=== PATIENT | male | born 1975 | race Caucasian/White ===

== ENCOUNTER → 2018-09-01 14:24 | Outpatient (CLI) | payer BC ==
[2013-09-01 10:55] VITALS: BMI 32.8
[~2018-09-01 14:24] MED LIST: ACETAMINOPHEN500 M1 PO; BAYER CHEWABLE81 MG PO; BUSPAR10 MG PO; LOTRIMIN10 ML TP; MEVACOR20 MG PO; MOTRIN600 MG PO; PEPCID40 MG PO; PERCOCET 10/3251 TA1 PO; SYSTANE 0.3-0.4%5 ML EACH EYE; SYSTANE NIGHTT3.5 GM EACH EYE; TENORMIN50 MG PO; VALTREX500 MG PO; VITAMIN D3400 UNI1 PO
--- NOTE | 2018-09-08 14:51 | ST ---
PATIENT:ZINA DEL VALLE MEDICAL RECORD: [id number] SEX: M LOCATION:[facility] ORDER #: ADMISSION DATE: 09/01/18 AGE OF PATIENT: 43 REFERRING PHYSICIAN: INTERPRETING PHYSICIAN: AME GOMEZ MD DATE OF SERVICE: 09/01/2018 Baseline ECG is normal. Exercised for 8 minutes 20 seconds under Ubaldo protocol. Maximum heart rate 136 beats per minute, 83% of max predicted. No ECG change for ischemia. No symptoms of ischemia. Normal blood pressure response to exercise. No arrhythmias were noted. Good exercise tolerance for age. TRANSINT:[id number] Voice Confirmation ID: [id number] DOCUMENT ID: [id number] AME GOMEZ MD at 1451 CC: [id number] DICTATION DATE: 09/07/18 1414 SENIOR HUMAN RESOURCES REPRESENTATIVE: 09/07/18 2218 DEP CLI 09/01/[address] [address]
== END | disposition home or self-care (01) ==
LOC: D.HCCARDIO 08-11 15:00
DX: R06.09 Other forms of dyspnea (principal)

== ENCOUNTER → 2018-12-04 11:55 | Outpatient (CLI) | payer BC ==
[2013-09-01 10:55] VITALS: BMI 32.8
== END | disposition home or self-care (01) ==
LOC: D.RAD 11:55
PROVIDERS: ATTEND Emergency Medicine
DX: M54.6 Pain in thoracic spine (principal)

== ENCOUNTER 2020-03-04 19:49 | Inpatient (IN) | payer MEDICAID ==
[~2020-03-04] VITALS: Ht 175.3 cm; Wt 106.1 kg
[2020-03-04] MEDS ORDERED: PAXIL40 MG PO (20:03)
[2020-03-04] MEDS ORDERED: ATIVAN1 MG PO (20:03)
[2020-03-04] MEDS ORDERED: TENORMIN50 MG PO (20:04)
[2020-03-04] MEDS ORDERED: LIPITOR80 MG (20:04)
[2020-03-04] MEDS ORDERED: SINGULAIR10 MG PO (20:05)
[2020-03-04] MEDS ORDERED: NASONEX NASAL S17 GM IH (20:06)
[2020-03-04 20:18] LABS: BASOPHILS 0.1 % (0-2); EOSINOPHILS 0.1 % (0-7); HEMOGLOBIN 12.7 g/dL (13.5-17.5); IMMATURE GRANULOCYTES 0.4 % (0-5); LYMPHOCYTES 13.4 % (15-50); MCH 29.6 pg (26.0-34.0); MCHC 33.4 g/dL (31.0-37.0); MCV 88.6 fL (80.0-100.0); MEAN PLATELET VOLUME 9.1 fL (7.4-10.4); MONOCYTES 5.7 % (2-11); NEUTROPHILS 80.3 % (40-80); RBC 4.29 10x6/uL (4.20-6.10); RDW 12.5 % (11.5-14.5); WBC 10.6 10x3/uL (4.8-10.8)
[2020-03-04 20:19] LABS: PLATELET COUNT 369 10x3/uL (130-400)
[2020-03-04 20:27] LABS: CALC OSMOLALITY 268 mosm/kg (275-300); CALCIUM 9.8 mg/dL (8.5-10.1); CARBON DIOXIDE 27.4 mmol/L (21.0-32.0); CHLORIDE - SERUM 96 mmol/L (98-107); CREATININE - SERUM 0.8 mg/dL (0.6-1.3); GLUCOSE 136 mg/dL (74-106); POTASSIUM - SERUM 3.4 mmol/L (3.5-5.1); SODIUM 134 mmol/L (136-145); UREA NITROGEN 10 mg/dL (7-18); eGFR NON AFRICAN AMERICAN > 90 mL/min (90-120)
[2020-03-04 20:37] LABS: ALBUMIN 3.3 g/dL (3.4-5.0); ALKALINE PHOSPHATASE 484 U/L (30-120); ALT (SGPT) 882 U/L (10-68); AMYLASE - SERUM 41 U/L (25-115); BILIRUBIN - TOTAL 2.01 mg/dL (0.2-1.3); LIPASE 161 U/L (73-393); PROTEIN - SERUM 8.2 g/dL (6.4-8.2)
[2020-03-04 20:38] LABS: TROPONIN-I < 0.017 ng/mL (0.000-0.060)
[2020-03-04 21:05] LABS: BILIRUBIN NEGATIVE (NEGATIVE); KETONE NEGATIVE (NEGATIVE); NITRITE NEGATIVE (NEGATIVE)
[2020-03-04 21:06] LABS: BACTERIA FEW /hpf (NEGATIVE); EPITHELIAL CELLS 0-5 /hpf (0-5); RED CELLS - URINE RARE /hpf (0-5); WHITE CELLS - URINE 0-5 /hpf (NEGATIVE)
--- NOTE | 2020-03-04 23:59 | NUR ---
REPORT RECEIVED FROM STEPHAN ENGLISH. ROOM PREPARATIONS COMPLETE.
[2020-03-05] VITALS (7 sets, daily range): BP systolic 110–133; BP diastolic 65–71; BMI 34.6
--- NOTE | 2020-03-05 01:00 | NUR ---
GAVE HS MEDICATIONS, ALONG WITH PRN ATIVAN AND MORPHINE FOR PAIN AND ANXIETY. WILL CONTINUE TO MONITOR FOR NEEDS.
--- NOTE | 2020-03-05 02:15 | NUR ---
ADMISSION ASSESSMENT AND HISTORY COMPLETE.
[2020-03-05 06:20] LABS: BASOPHILS 0.1 % (0-2); EOSINOPHILS 0.6 % (0-7); HEMATOCRIT 36.4 % (42.0-54.0); IMMATURE GRANULOCYTES 0.3 % (0-5); LYMPHOCYTES 10.2 % (15-50); MCH 29.1 pg (26.0-34.0); MCV 88.3 fL (80.0-100.0); MEAN PLATELET VOLUME 9.4 fL (7.4-10.4); MONOCYTES 7.9 % (2-11); NEUTROPHILS 80.9 % (40-80); PLATELET COUNT 340 10x3/uL (130-400); RBC 4.12 10x6/uL (4.20-6.10); RDW 12.4 % (11.5-14.5)
[2020-03-05 06:27] LABS: INR 1.04 (0.85-1.17); PROTIME 13.6 SECONDS (11.6-15.0)
[2020-03-05 06:48] LABS: ALBUMIN 2.9 g/dL (3.4-5.0); ALKALINE PHOSPHATASE 496 U/L (30-120); AMYLASE - SERUM 33 U/L (25-115); BILIRUBIN - TOTAL 2.65 mg/dL (0.2-1.3); CALCIUM 8.5 mg/dL (8.5-10.1); CARBON DIOXIDE 28.9 mmol/L (21.0-32.0); CHLORIDE - SERUM 100 mmol/L (98-107); CREATINE KINASE 34 UL (21-232); CREATININE - SERUM 0.6 mg/dL (0.6-1.3); GLUCOSE 122 mg/dL (74-106); LIPASE 152 U/L (73-393); POTASSIUM - SERUM 3.8 mmol/L (3.5-5.1); PROTEIN - SERUM 6.8 g/dL (6.4-8.2); SODIUM 136 mmol/L (136-145); eGFR NON AFRICAN AMERICAN > 90 mL/min (90-120)
[2020-03-05 06:56] LABS: ALT (SGPT) 1392 U/L (10-68); CALC OSMOLALITY 270 mosm/kg (275-300); UREA NITROGEN 7 mg/dL (7-18)
--- NOTE | 2020-03-05 08:00 | NUR ---
RESTING IN BED, NO DISTRESS NOTED, FAMILY IN ROOM, ASKING ABOUT DR AND SURGERY
--- NOTE | 2020-03-05 19:00 | NUR ---
BEDSIDE REPORT RECEIVED AND CARE OF PT ASSUMED. PT LYING IN LOW FOX'S POSITION. IV TO RIGHT FA PATENT WITH NS INFUSING AT 100 ML/HR. WILL MONITOR FOR NEEDS.
--- NOTE | 2020-03-05 21:34 | NUR ---
HS MEDICATIONS GIVEN TO INCLUDE MORPHINE 4 MG IVP PER REQUEST FOR PAIN.
--- NOTE | 2020-03-05 23:14 | NUR ---
GAVE ATIVAN 1MG PO PER PT REQUEST FOR ANXIETY, PER PRN ORDER.
[2020-03-06] VITALS (7 sets, daily range): BP systolic 104–134; BP diastolic 56–78; Ht 175.3 cm; Wt 106.1 kg
--- NOTE | 2020-03-06 00:05 | NUR ---
NPO STATUS BEGINS NOW...ALL FOOD AND DRINK REMOVED FROM PT'S SIDE TABLE.
--- NOTE | 2020-03-06 04:30 | NUR ---
HIBACLENS BATH PERFORMED AND ALL LINENS AND GOWN CHANGED.
--- NOTE | 2020-03-06 19:00 | NUR ---
BEDSIDE REPORT RECEIVED AND CARE OF PT ASSUMED. PT LYING IN MID FOX'S POSITION VISITING WITH SPOUSE. IV TO RIGHT FA PATENT WITH NS INFUSING AT 100 ML/HR, AND ZOFRAN INFUSING AT 4.7 ML/HR. X4 ABDOMINAL LAP SITES WILL APPROXIMATED WITH NO DRAINAGE. SERVANDO DRAIN FULL OF BLOOD...EMPTIED 100 ML AND COMPRESSED. WILL MONITOR FOR NEEDS.
--- NOTE | 2020-03-06 20:22 | NUR ---
HS MEDICATIONS GIVEN TO INCLUDE MORPHINE AND ATIVAN PER REQUEST FOR PAIN AND ANXIETY.
[2020-03-07] VITALS: BP 100/55
[2020-03-07 04:00] VITALS: BP 112/65
[2020-03-07 05:47] LABS: BASOPHILS 0.1 % (0-2); EOSINOPHILS 0.1 % (0-7); HEMOGLOBIN 10.3 g/dL (13.5-17.5); IMMATURE GRANULOCYTES 0.2 % (0-5); MCH 28.9 pg (26.0-34.0); MCHC 32.2 g/dL (31.0-37.0); MCV 89.6 fL (80.0-100.0); MEAN PLATELET VOLUME 9.3 fL (7.4-10.4); MONOCYTES 7.1 % (2-11); NEUTROPHILS 83.5 % (40-80); PLATELET COUNT 358 10x3/uL (130-400); RBC 3.57 10x6/uL (4.20-6.10); RDW 12.5 % (11.5-14.5)
[2020-03-07 06:20] LABS: ALBUMIN 2.5 g/dL (3.4-5.0); ALKALINE PHOSPHATASE 487 U/L (30-120); BILIRUBIN - TOTAL 1.31 mg/dL (0.2-1.3); CALCIUM 7.7 mg/dL (8.5-10.1); CARBON DIOXIDE 26.8 mmol/L (21.0-32.0); CHLORIDE - SERUM 106 mmol/L (98-107); CREATININE - SERUM 0.6 mg/dL (0.6-1.3); GLUCOSE 106 mg/dL (74-106); POTASSIUM - SERUM 3.6 mmol/L (3.5-5.1); PROTEIN - SERUM 6.5 g/dL (6.4-8.2); SODIUM 140 mmol/L (136-145); eGFR NON AFRICAN AMERICAN > 90 mL/min (90-120)
[2020-03-07 06:24] LABS: ALT (SGPT) 768 U/L (10-68); CALC OSMOLALITY 277 mosm/kg (275-300); UREA NITROGEN 9 mg/dL (7-18)
[2020-03-07 06:27] LABS: WBC 14.6 10x3/uL (4.8-10.8)
--- NOTE | 2020-03-07 08:45 | NUR ---
PATIENT UP OUT OF BED AT THIS TIME. TOLERATING CLEAR LIQUIDS. IV INTACT. NO COMPLAINTS. CALL LIGHT WITHIN REACH. FAMILY AT BEDSIDE.
--- NOTE | 2020-03-07 10:00 | NUR ---
PATIENT SL TO GO FOR A WALK. AMBULATED DOWN THE MEEHAN PASSED THE LINEN CART AND BACK TO HIS ROOM. STATED HE WAS GOING TO SIT UP IN THE CHAIR FOR AWHILE AND THEN WALK AGAIN. AT SIDE.
[2020-03-07 10:04] VITALS: BP 118/66
--- NOTE | 2020-03-07 12:30 | NUR ---
PATIENT TOLERATED REGULAR DIET. STATED A SMALL AMOUNT OF NAUSEA NOW AND THEN BUT NO VOMITING. IS PASSING GAS. IV INTACT. EXPLAINED HOW TO USE IS. DEMONSTRATED BACK. CALL LIGHT WITHIN REACH.
[2020-03-07 13:46] VITALS: BP 117/66
[2020-03-07 16:47] VITALS: BP 126/74
--- NOTE | 2020-03-07 17:56 | NUR ---
PATIENT RECIEVED ONE DOSE OF ZOFRAN IV. SAYS IT IS ALREADY HELPING THE BURNING IN HIS STOMACH. PATIENT IS STILL ANXIOUS AND WANTING TO GO HOME. HE SAYS HE NEEDS TO GET BACK ON HER MEDS BECAUSE HE HAS ANXIETY AND PTSD AND IS NOT TAKING THE MEDS HE TAKES AT HOME. SPOKE WITH DR. GAO AND HE STATED HE ALREADY SAID THE PATIENT COULD GO HOME. NOTIFIED BRIAN WITH DR. VILLATORO. SAID HE WOULD SPEAK WITH DR. BOLIVAR ABOUT DC. WAITING FOR INSTRUCTIONS. EXPLAINED TO PATIENT. VERBALIZED UNDERSTANDING. CALL LIGHT WITHIN REACH.
--- NOTE | 2020-03-07 19:32 | NUR ---
REMOVED IV FROM RIGHT ARM WITH CATH TIP INTACT. HAD PATIENT EMPTY DRAIN THIS TIME. WAS ABLE TO DEMONSTRATE BACK WHAT WAS TAUGHT EARLIER. EXPLAINED TO KEEP A LOG OF TIME AND DATE OF DRAINAGE AND REPORT BACK TO DR. GAO ON FOLLOW UP. VERBALIZED UNDERSTANDING. WAITING FOR DC INSTRUCTIONS. FAMILY AT BEDSIDE. ATIVAN GIVEN FOR ANXIETY.
[2020-03-07 20:00] VITALS: BP 147/72
--- NOTE | 2020-03-07 21:00 | NUR ---
IV REMOVED BY DOUG ROTHMAN. PT GATHERED ALL BELONGINGS, DISCHARGE PAPERWORK SIGNED AND PT COPY GIVEN. WHEELED TO ER ENTRANCE, PT RECEIVED BY HER SON.
--- NOTE | 2020-03-09 13:22 | OP ---
PATIENT NAME: ZINA DEL VALLE MEDICAL RECORD: [id number] :71 LOCATION:[id number] ADMISSION DATE:03/04/20 SURGEON: PEDRO GAO MD DATE OF OPERATION: 03/06/2020 PREOPERATIVE DIAGNOSES: 1. Acute cholecystitis. 2 Asperger syndrome. 3. Posttraumatic stress disorder. POSTOPERATIVE DIAGNOSES: 1. Acute cholecystitis. 2 Asperger syndrome. 3. Posttraumatic stress disorder. PROCEDURE: Laparoscopic cholecystectomy with attempted cholangiogram. SURGEON: Pedro Gao MD REPORT OF PROCEDURE: The patient's abdomen was prepped and draped in sterile fashion. A cutdown was made on the superior aspect of the umbilicus, 0 Vicryls were placed in the fascia bilaterally and the fascia was incised with 15-blade. I then bluntly entered the peritoneal cavity and placed a 12-mm Stan port. Under direct visualization, a 5 mm trocar was placed in the epigastrium and 2 more 5-mm trocars were placed in the right subcostal region. The gallbladder was grasped and elevated and there was a lot of inflammatory adhesions present around it from the omentum. These were teased down carefully with blunt dissection. The gallbladder was so distended, it was difficult to grasp, so we aspirated the gallbladder and got back clear fluid consistent with a hydrops gallbladder. We dissected down through the fatty tissue and was eventually able to dissect out the patient's cystic artery and what appeared to be the cystic duct. We placed clips proximally on this duct and made a small opening. We could see a lumen present. We attempted to pass a Cook cholangiocath through this and was able to clamp this off, but in order to do this, we had to replace our epigastric trocar with a 12-mm trocar and use larger clips. We eventually got the catheter in place and was able to clip across the duct. Once we brought fluoroscopy in and tried to perform the cholangiogram, there was just an extravasation of the contrast around the clip. I was not able to visualize tissues very well. So at this point, I just discontinued attempts to do cholangiogram. The Cook cholangiocath was then removed. I clipped the cystic duct twice distally and then it was ligated in standard fashion. The gallbladder was taken off the liver bed using electrocautery and placed into an Endo Catch bag. The right upper quadrant was irrigated out thoroughly with normal saline. Any bleeding from the liver bed was then treated with electrocautery. A 19-Chinese Polo drain was inserted through the most lateral right subcostal incision and placed just under the liver and the gallbladder fossa. This was sutured into place with 3-0 nylon. The ports and insufflation were then removed and we had to extend the umbilical incision in order to remove the gallbladder. This incision was then closed with interrupted 0 Vicryls times 4. The wounds were irrigated out with normal saline and infused with 10 mL of 0.25% Marcaine with epinephrine. The skin incisions were closed with subcutaneous 5-0 Monocryl and dressed appropriately. COMPLICATIONS: None. OPERATIVE REPORT [id number] ZINA DEL VALLE CONDITION: Stable. ANESTHESIA: General endotracheal and local. BLOOD LOSS: 100 mL. TRANSINT:[id number] Voice Confirmation ID: [id number] DOCUMENT ID: [id number] PEDRO GAO MD at 1322 CC: [id number] DICTATION DATE: 03/06/20 1450 SUPERVISOR ROUGH END: 03/07/20 0033 DIS IN 03/07/20 [facility] [address] [place] [address]
== END 2020-03-07 21:42 | disposition home or self-care (01) | DRG 418 ==
LOC: D.ER 19:49 → D.MS 23:26
PROVIDERS: Family Medicine; Surgery; ADMIT Legal Medicine; ATTEND Legal Medicine
PROC: 0FT44ZZ Resection of Gallbladder, Percutaneous Endoscopic Approach (ICD-10-PCS; principal; 2020-03-06 12:00)
DX: K81.0 Acute cholecystitis (principal); F84.5 Asperger's syndrome; F43.10 Post-traumatic stress disorder, unspecified; R11.2 Nausea with vomiting, unspecified; I10 Essential (primary) hypertension; R79.89 Other specified abnormal findings of blood chemistry; D72.829 Elevated white blood cell count, unspecified

== ENCOUNTER → 2020-03-23 19:13 | Outpatient (CLI) | payer MEDICAID ==
[2020-03-06 13:24] VITALS: BMI 34.5
[~2020-03-23 19:13] MED LIST changes: +ATIVAN1 MG PO; +LIPITOR80 MG; +NASONEX NASAL S17 GM IH; +PAXIL40 MG PO; +SINGULAIR10 MG PO
[2020-03-23 20:01] LABS: BASOPHILS 0.1 % (0-2); HEMATOCRIT 35.9 % (42.0-54.0); HEMOGLOBIN 11.5 g/dL (13.5-17.5); IMMATURE GRANULOCYTES 0.3 % (0-5); LYMPHOCYTES 12.2 % (15-50); MCH 28.5 pg (26.0-34.0); MCV 88.9 fL (80.0-100.0); MEAN PLATELET VOLUME 9.6 fL (7.4-10.4); MONOCYTES 3.3 % (2-11); NEUTROPHILS 83.1 % (40-80); RBC 4.04 10x6/uL (4.20-6.10); RDW 13.1 % (11.5-14.5); WBC 13.9 10x3/uL (4.8-10.8)
[2020-03-23 20:07] LABS: PLATELET COUNT 505 10x3/uL (130-400)
[2020-03-23 20:20] LABS: ALBUMIN 3.3 g/dL (3.4-5.0); ALKALINE PHOSPHATASE 260 U/L (30-120); ALT (SGPT) 31 U/L (10-68); BILIRUBIN - TOTAL 0.32 mg/dL (0.2-1.3); CALC OSMOLALITY 274 mosm/kg (275-300); CALCIUM 8.4 mg/dL (8.5-10.1); CARBON DIOXIDE 26.2 mmol/L (21.0-32.0); CHLORIDE - SERUM 101 mmol/L (98-107); CREATININE - SERUM 0.8 mg/dL (0.6-1.3); GLUCOSE 115 mg/dL (74-106); POTASSIUM - SERUM 4.2 mmol/L (3.5-5.1); PROTEIN - SERUM 7.2 g/dL (6.4-8.2); SODIUM 138 mmol/L (136-145); UREA NITROGEN 8 mg/dL (7-18); eGFR NON AFRICAN AMERICAN > 90 mL/min (90-120)
== END | disposition home or self-care (01) ==
LOC: D.LABREF 19:13
PROVIDERS: ATTEND Surgery
DX: K81.9 Cholecystitis, unspecified (principal)